=== PATIENT | male | born 1975 | race African-American/Black ===

== ENCOUNTER 2017-10-27 13:16 | Outpatient (CLI) | END 2017-10-27 13:17 | disposition home or self-care (01) | LOC: LAB 13:16 | PROVIDERS: ATTEND Emergency Medicine | DX: E78.5 Hyperlipidemia, unspecified (principal); I10 Essential (primary) hypertension; Z82.49 Family history of ischemic heart disease and other diseases of the circulatory system | CPT/HCPCS: 36415; 80053; 80061; 84443; 85025 ==

== ENCOUNTER 2017-12-31 10:10 | Outpatient (CLI) ==
--- NOTE | 2017-12-31 10:46 | DI ---
EXAM: RIGHT FOOT, 3 VIEWS HISTORY: Foot pain FINDINGS: Bone and joint structures appear normal. No displaced fracture or joint dislocation is s een. There is no joint effusion. Soft tissues within normal limits. IMPRESSION: Within normal limits.
== END 2017-12-31 10:11 | disposition home or self-care (01) ==
LOC: RAD 10:10
PROVIDERS: ATTEND Emergency Medicine
DX: M79.673 Pain in unspecified foot (principal)

== ENCOUNTER 2018-01-04 14:40 | Outpatient (CLI) | END 2018-01-04 14:41 | disposition home or self-care (01) | LOC: LAB 14:40 | PROVIDERS: ATTEND Emergency Medicine | DX: D64.9 Anemia, unspecified (principal) | CPT/HCPCS: 36415; 82607; 82728; 82746; 83540; 83550; 84466; 85025; 85045 ==

== ENCOUNTER 2018-04-06 11:29 | Outpatient (CLI) | payer OTHER | END 2018-04-06 11:30 | disposition home or self-care (01) | LOC: LAB 11:29 | PROVIDERS: ATTEND Emergency Medicine | DX: D64.9 Anemia, unspecified (principal); E78.5 Hyperlipidemia, unspecified; I10 Essential (primary) hypertension; Z82.49 Family history of ischemic heart disease and other diseases of the circulatory system | CPT/HCPCS: 36415; 80053; 80061; 84443; 85025 ==

== ENCOUNTER 2018-11-09 09:43 | Outpatient (CLI) | END 2018-11-09 09:44 | disposition home or self-care (01) | LOC: RHC-LAB 09:43 | PROVIDERS: ATTEND Nurse Practitioner Family | DX: R31.9 Hematuria, unspecified (principal) | CPT/HCPCS: 81001 ==

== ENCOUNTER 2018-12-16 12:13 | Outpatient (CLI) | payer OTHER | END 2018-12-16 12:14 | disposition home or self-care (01) | LOC: RHC-LAB 12:13 | PROVIDERS: ATTEND Nurse Practitioner Family | DX: D64.9 Anemia, unspecified (principal); I10 Essential (primary) hypertension | CPT/HCPCS: 36415; 80053; 80061; 82607; 82728; 82746; 83540; 83550; 84466; 85025; 85045 ==

== ENCOUNTER 2019-06-10 08:24 | Outpatient (CLI) | END 2019-06-10 08:25 | disposition home or self-care (01) | LOC: LAB 08:24 | PROVIDERS: ATTEND Nurse Practitioner Family | DX: D64.9 Anemia, unspecified (principal); I10 Essential (primary) hypertension | CPT/HCPCS: 36415; 80053; 80061; 84443; 85025 ==